=== PATIENT | male | born 1985 | race Caucasian/White ===

== ENCOUNTER 2022-01-26 13:31 | Observation (INO) ==
[2022-01-26] MEDS ORDERED: Naloxone 0.4 MG/ML INJ IVP PRN (17:22)
[2022-01-26] MEDS ORDERED: Ondansetron 4 MG/2 ML VIAL IVP PRN (17:22)
[2022-01-26] MEDS ORDERED: Perflutren Lipid Microsphere 1.3 ML in 0.9 % Sodium Chloride 8.7 ML IVP PRN (17:44)
[2022-01-26] MEDS: lisinopriL 20 MG TABLET PO SCH (19:55)
[2022-01-26] MEDS: carvediloL 25 MG TABLET PO SCH (19:56)
[2022-01-27 06:02] LABS: Basophils # 0.1 K/mcL (0.0-0.2); Basophils % 0.7 %; Eosinophils # 0.3 K/mcL (0.0-0.6); Eosinophils % 2.2 %; Hematocrit 45.4 % (37.5-50.1); Hemoglobin 15.4 g/dL (12.9-16.9); Immature Granulocytes % 0.8 % (0-4); Lymphocytes # 3.1 K/mcL (0.6-4.6); Lymphocytes % 23.2 %; Mean Corpuscular HGB Conc 33.9 g/dL (31.6-35.5); Mean Corpuscular Hemoglobin 29.4 pg (28.0-33.3); Mean Corpuscular Volume 86.8 fL (83.0-100.0); Mean Platelet Volume 9.8 fL (9.4-12.4); Monocytes # 0.9 K/mcL (0.0-1.3); Monocytes % 6.8 %; Neutrophils # 8.9 K/mcL (1.6-8.9); Platelet Count 286 K/mcL (140-400); Red Blood Count 5.23 M/mcL (4.19-5.50); Segmented Neutrophils % 66.3 %; White Blood Count 13.4 K/mcL (4.3-11.1)
[2022-01-27 06:13] LABS: BUN/Creatinine Ratio 15 (6-26); Blood Urea Nitrogen 14 mg/dL (6-20); Calcium 8.3 mg/dL (8.6-10.3); Carbon Dioxide 29 mEq/L (23-29); Chloride 104 mEq/L (98-107); Glucose 132 mg/dL (70-105); Magnesium 2.1 mg/dL (1.6-2.6); Osmolality,Calculated 288 (280-300); Potassium 3.9 mEq/L (3.5-5.1); Sodium 138 mEq/L (136-145); eGFR For African Americans > 60 (> 60); eGFR For Non-African Americans > 60 (> 60)
[2022-01-27] MEDS: lisinopriL 20 MG TABLET PO SCH ×2 (09:06→20:13)
[2022-01-27] MEDS: Spironolactone 25 MG TABLET PO SCH (09:07)
[2022-01-27] MEDS: Furosemide 40 MG TABLET PO SCH (09:07)
[2022-01-27] MEDS: carvediloL 25 MG TABLET PO SCH ×2 (09:07→20:13)
[2022-01-27] MEDS: amLODIPine 5 MG TABLET PO SCH (09:07)
[2022-01-28] MEDS ORDERED: Regadenoson 0.4 MG/5 ML SYRINGE IVP ONE (06:24)
[2022-01-28 12:39] VITALS: BP 120/78; PULSE 61; TEMP 97.8; O2SAT 96
[2022-01-28] MEDS: amLODIPine 5 MG TABLET PO SCH (12:44)
[2022-01-28] MEDS: carvediloL 25 MG TABLET PO SCH (12:45)
[2022-01-28] MEDS: lisinopriL 20 MG TABLET PO SCH (12:45)
[2022-01-28] MEDS: Spironolactone 25 MG TABLET PO SCH (12:45)
[2022-01-28] MEDS: Furosemide 40 MG TABLET PO SCH (12:45)
== END 2022-01-28 15:20 | disposition home or self-care (01) ==
LOC: 3BNU → SUATTDRO 16:02
PROVIDERS: ADMIT Student in an Organized Health Care Education/Training Program; ATTEND Family Medicine